=== PATIENT | male | born 1940 | race Caucasian/White ===

== ENCOUNTER 2020-03-01 18:29 | Outpatient (REF) | payer MEDICARE, BC, SELFPAY ==
[2020-03-01 21:26] LABS: Abs Immature Grans 0.02 k/cumm (0.0-0.09); Absolute Basophil Count 0.01 k/cumm (0.0-0.2); Absolute Lymphocyte Count 1.64 k/cumm (1.2-3.4); Absolute Monocyte Count 0.82 k/cumm (0.11-0.7); Basophils % 0.1; Eosinophils % 2.5; HCT 46.8 % (40.0-50.0); HGB 15.8 g/dL (13.5-17.5); Immature Grans % 0.3 %; Lymphocytes % 20.8; Mean Corp. HGB Concentration 33.8 g/dL (32.0-36.0); Mean Corpuscular Hemoglobin 31.2 pg (27.0-33.0); Mean Corpuscular Volume 92.3 fL (80-95); Mean Platelet Volume 11.1 fL (8.0-11.0); Monocytes % 10.4; Neutrophils % 65.9; Platelet Count 197 x1000/uL (130-400); RBC 5.07 m/cumm (4.50-6.00); White Blood Cell Count 7.89 k/cumm (4.4-10.8)
[2020-03-01 21:43] LABS: ALT 54 U/L (16-63); AST 60 U/L (15-37); Alkaline Phosphatase 121 U/L (46-116); Anion Gap 11.7 mmol/L (3-11); BUN 15 mg/dL (7-18); Bilirubin, Total 0.7 mg/dL (0.2-1.0); CO2 25.3 mmol/L (21.0-32.0); Calcium 9.3 mg/dL (8.5-10.1); Calculated LDL 114 mg/dL (<100); Chloride 104 mmol/L (98-107); Cholesterol 192 mg/dL (<200); Glucose 83 mg/dL (74-106); HDL Cholesterol 66 mg/dL (40-60); Potassium 4.8 mmol/L (3.5-5.1); Sodium 141 mmol/L (136-145); Total Protein 7.4 g/dL (6.4-8.2); Triglyceride 60 mg/dL (<150)
== END 2020-03-01 18:49 ==
LOC: NCHCN 18:29
PROVIDERS: Visit Provider Physician Assistant
DX: I10 Essential (primary) hypertension (principal); R19.7 Diarrhea, unspecified; R26.81 Unsteadiness on feet; R29.6 Repeated falls; M25.552 Pain in left hip
CPT/HCPCS: 80053; 80061; 85025

== ENCOUNTER 2020-05-09 14:39 | Outpatient (REF) | payer MEDICARE, BC, SELFPAY ==
[2020-05-09 19:15] LABS: Abs Immature Grans 0.05 10^3/uL (0.0-0.06); Absolute Basophil Count 0.04 10^3/uL (0.0-0.2); Absolute Eosinophil Count 0.12 10^3/uL (0.0-0.7); Absolute Lymphocyte Count 1.44 10^3/uL (1.2-3.4); Absolute Monocyte Count 1.03 10^3/uL (0.1-0.8); Absolute Neutrophil Count 6.86 10^3/uL (1.2-6.7); Basophils % 0.4; Eosinophils % 1.3; HCT 34.2 % (40.0-50.0); HGB 10.9 g/dL (13.5-17.5); Immature Grans % 0.5; Lymphocytes % 15.1; MCH 31.3 pg (27.0-33.0); MCHC 31.9 % (32.0-36.0); MCV 98.3 fL (80-95); MPV 10.2 fL (8.0-11.0); Monocytes % 10.8; Neutrophils % 71.9; Nucleated RBC 0 %; Platelet Count 458 10^3/uL (130-400); RBC 3.48 10^6/uL (4.36-5.78); RDW 13.3 % (11.8-14.1); RDW-SD 47.9 fL; WBC 9.54 10^3/uL (4.4-10.8)
[2020-05-09 19:34] LABS: ALT 59 U/L (16-63); AST 45 U/L (15-37); Albumin 3.2 g/dL (3.4-5.0); Alkaline Phosphatase 121 U/L (46-116); Anion Gap 11.4 mmol/L (3-11); BUN 11 mg/dL (7-18); Bilirubin, Total 0.4 mg/dL (0.2-1.0); CO2 25.6 mmol/L (21.0-32.0); CREATININE 0.85 mg/dL (0.70-1.30); Chloride 106 mmol/L (98-107); Glucose 89 mg/dL (74-106); Potassium 4.1 mmol/L (3.5-5.1); Sodium 143 mmol/L (136-145); Total Protein 6.4 g/dL (6.4-8.2)
== END 2020-05-09 14:59 ==
LOC: NCHCN 14:39
PROVIDERS: Visit Provider Physician Assistant
DX: I10 Essential (primary) hypertension (principal)
CPT/HCPCS: 80053; 85025

== ENCOUNTER → 2022-05-20 11:08 | Outpatient (BNVA) | payer MEDICARE, SELFPAY | PROVIDERS: PCP Physician Assistant; Visit Provider Internal Medicine Cardiovascular Disease | DX: I25.810 Atherosclerosis of coronary artery bypass graft(s) without angina pectoris (principal); I25.2 Old myocardial infarction; I42.9 Cardiomyopathy, unspecified; I44.0 Atrioventricular block, first degree; I10 Essential (primary) hypertension; I44.7 Left bundle-branch block, unspecified; J44.9 Chronic obstructive pulmonary disease, unspecified | CPT/HCPCS: 93005; 99203 ==

== ENCOUNTER 2022-05-20 11:09 | Outpatient (CLI) | payer MEDICARE, SELFPAY ==
--- NOTE | 2022-05-20 11:00 | RT.EKG_ITS ---
APPROVED REPORT Exam: Resting ECG Reason for Exam: NPW, Baseline needed Patient Location: O HR:58 bpm ECG Measurements Heart Rate 58 AXIS ID 253 P 44 QRSd 100 QRS 7 QT 420 T 77 QTc 413 Conclusion Sinus rhythm...normal P axis, V-rate 50- 99 Borderline first-degree AV block Minor diffuse nondiagnostic ST abnormalities
== END 2022-05-20 11:10 | disposition home or self-care (01) ==
LOC: DI.CARD 11:10
PROVIDERS: PCP Physician Assistant; Visit Provider Internal Medicine Cardiovascular Disease
DX: I10 Essential (primary) hypertension (principal); I21.4 Non-ST elevation (NSTEMI) myocardial infarction; I42.9 Cardiomyopathy, unspecified; I44.0 Atrioventricular block, first degree; I44.7 Left bundle-branch block, unspecified; J44.9 Chronic obstructive pulmonary disease, unspecified; R94.31 Abnormal electrocardiogram [ECG] [EKG]
CPT/HCPCS: 93010

== ENCOUNTER 2023-05-16 16:39 | Outpatient (REF) | payer MEDICARE, SELFPAY ==
[2023-05-16 18:52] LABS: Abs Immature Grans 0.02 10^3/uL (0.0-0.06); Absolute Basophil Count 0.04 10^3/uL (0.0-0.2); Absolute Eosinophil Count 0.11 10^3/uL (0.0-0.7); Absolute Lymphocyte Count 1.77 10^3/uL (1.2-3.4); Absolute Monocyte Count 0.75 10^3/uL (0.1-0.8); Absolute Neutrophil Count 4.87 10^3/uL (1.2-6.7); Basophils % 0.5; Eosinophils % 1.5; HCT 46.9 % (40.0-50.0); HGB 15.7 g/dL (13.5-17.5); Immature Grans % 0.3; Lymphocytes % 23.4; MCH 31.8 pg (27.0-33.0); MCHC 33.5 % (32.0-36.0); MCV 95 fL (80-95); MPV 10.1 fL (8.0-11.0); Monocytes % 9.9; Neutrophils % 64.4; Platelet Count 187 10^3/uL (130-400); RBC 4.93 10^6/uL (4.36-5.78); RDW 12.8 % (11.8-14.1); RDW-SD 45.5 fL; WBC 7.56 10^3/uL (4.4-10.8)
[2023-05-16 18:55] LABS: ESR 17 mm/hr (0-20)
[2023-05-16 19:07] LABS: ALT 44 U/L (16-63); AST 31 U/L (15-37); Alkaline Phosphatase 100 U/L (46-116); Anion Gap 8.5 mmol/L (3-11); BUN 24 mg/dL (7-18); Bilirubin, Total 0.7 mg/dL (0.2-1.0); CO2 26.5 mmol/L (21.0-32.0); CREATININE 0.9 mg/dL (0.70-1.30); Calcium 9.7 mg/dL (8.5-10.1); Calculated LDL 53 mg/dL (<100); Chloride 104 mmol/L (98-107); Cholesterol 122 mg/dL (<200); Estimated GFR 84.74 (mL/min/1.73m2); Glucose 92 mg/dL (74-106); HDL Cholesterol 60 mg/dL (40-60); Potassium 4.4 mmol/L (3.5-5.1); Sodium 139 mmol/L (136-145); Total Protein 7.8 g/dL (6.4-8.2); Triglyceride 47 mg/dL (<150)
[2023-05-16 20:01] LABS: C-Reactive Protein 0.07 mg/dL (0.0-0.3)
== END 2023-05-16 16:40 | disposition home or self-care (01) ==
LOC: NCHCN 16:39
PROVIDERS: PCP Physician Assistant; Visit Provider Internal Medicine
DX: I10 Essential (primary) hypertension (principal); E78.5 Hyperlipidemia, unspecified; R21 Rash and other nonspecific skin eruption; I21.4 Non-ST elevation (NSTEMI) myocardial infarction; I25.10 Atherosclerotic heart disease of native coronary artery without angina pectoris
CPT/HCPCS: 80053; 80061; 85652; 85025; 86140